=== PATIENT | male | born 1985 | race Caucasian/White ===

== ENCOUNTER → 2024-10-09 | Outpatient (CLI) | payer BC, SELFPAY | END | disposition home or self-care (01) | LOC: SLDO 14:47 | PROVIDERS: Referring Provider Family Medicine; Visit Provider Family Medicine | DX: Z01.89 Encounter for other specified special examinations (principal) | CPT/HCPCS: 87015; 87045; 87046; 87077; 87177; 87186; 87209; 87899 ==